=== PATIENT | male | born 1995 | race Caucasian/White ===

== ENCOUNTER 2019-07-13 19:49 | Emergency (ER) | payer SELFPAY ==
[2019-07-13 19:50] VITALS: BP 117/76; PULSE 82; PULSE 96; RESP 16; RESP 24; TEMP 36.6; O2SAT 100; BMI 26.7
--- NOTE | 2019-07-13 20:06 | ED.VISSUMM ---
- ER Visit Summary Date of Service: 07/13/19 Chief Complaint: Dental pain History of Present Illness: The patient is a 23 M who presents with right lower dental pain that began approximately 30 minutes prior to arrival. Patient states he thinks he broke a piece of his tooth off. Patient stated over the right lower molar area. Patient denies any fevers. Patient does admit to cold sensitivity. Patient describes his pain as sharp. Patient states nothing makes it better or worse. Patient states he does not have a dentist that he normally sees. Physical Examination: Vital signs are stable. Patient is afebrile. Patient is in no acute distress. Oral mucosa is pink and moist. Oropharynx is clear. Airway is patent. There is tenderness over the right lower third molar. There is a dental carry noted over this tooth. There is some gingival edema. There is no sublingual edema or evidence of Willie angina. Neck is supple. Trachea is midline. There is no JVD. Heart was regular rate and rhythm. Lungs are clear and equal bilaterally. Cranial nerves II through XII are intact. There are no focal motor or sensory deficits. Emergency Department Course and Treatment: Patient was given a dose of Naprosyn and penicillin here. Patient is given prescriptions for Naprosyn and Pen-Vee K. Patient was instructed to follow-up with a dentist in 5 to 7 days. Patient understood and was agreeable with the plan. All questions were answered. Disposition: Discharge home Impression: Infected dental caries This note was generated with [employer] dictation software. It may contain incorrect words, spelling, and punctuation that were not noted in review of the chart prior to signing ED Disposition - Plan for ED Patient: Disposition: Home or Assisted Living Diagnosis: Infected dental caries Instructions: Dental Pain, Dental Cavity Prescriptions: Naproxen [Naprosyn] 500 mg PO BID PRN #20 tab Prescription Printed Penicillin V Potassium 500 mg PO 4X/DAY #40 tab Prescription Printed Referrals: Nanci Beasley MD [STAFF PHYSICIAN] - 5-7 Days [facility] [STAFF PHYSICIAN] - 3-5 Days
[2019-07-13] MEDS: Penicillin Vk 250 MG Tablet 500 MG PO (20:19)
[2019-07-13] MEDS: Naproxen 250 MG Tablet 500 MG PO (20:19)
== END 2019-07-13 20:21 | disposition home or self-care (01) ==
PROVIDERS: Emergency Provider Emergency Medicine
DX: K04.7 Periapical abscess without sinus (principal); K02.9 Dental caries, unspecified; F17.200 Nicotine dependence, unspecified, uncomplicated
CPT/HCPCS: 99282

== ENCOUNTER 2019-08-18 12:00 | Emergency (ER) | payer SELFPAY ==
[2019-08-18 12:02] VITALS: BP 129/87; PULSE 114; RESP 16; TEMP 36.7; O2SAT 98; BMI 25.1
[2019-08-18] MEDS: Diphth,Pertuss(Acell),Tet Vac 0.5 ML Vial IM (12:33)
--- NOTE | 2019-08-18 12:35 | ED.VIS.GEN ---
History of Present Illness Informant: Patient Onset: Today Context: Sudden Onset Timing: Continuous Quality: sharp Location: right thigh Current Severity: Mild Maximum Severity: Moderate Worsened by: movement Relieved by: rest Associated Symptoms: denies Narrative: 24-year-old male who denies any significant past medical history presents to the emergency department with a laceration to his right thigh. This occurred just prior to arrival. He was attempting to shave his legs. He lacerated his right thigh with a razor blade. He denies any other injuries. He denies any numbness tingling or weakness. He does not remember when his last tetanus immunization was. He is not on blood thinners. Prior similar symptoms: No Recent Illness/Hospitalization: No <Sanjeev Michelle - Last Filed: 08/18/19 12:37> <Ivan Mcqueen - Last Filed: 08/18/19 12:45> Chief Complaint: Laceration Past Medical History Prior records reviewed: Yes Past Medical History: None Surgical History: no surgical history Lives: With Family Smoking Status: Current every day smoker Alcohol: Occasional Drugs: None <Sanjeev Michelle - Last Filed: 08/18/19 12:37> <Ivan Mcqueen - Last Filed: 08/18/19 12:45> - Allergies and Home Meds Allergies/Adverse Reactions: Allergies No Known Allergies Allergy (Verified 08/18/19 12:01) Primary Care Physician: Chris Delong MD [STAFF PHYSICIAN] - 10-14 Days suture removal Review of Systems All systems negative except as indicated General: Denies: Chills, Fever, Malaise, Subjective, Sweats, Weight loss, - Eyes: Denies: Visual changes - left, Visual changes - right, Visual changes - bilaterally, Blurred vision - left, Blurred vision - right, Blurred Vision - bilaterally, Diplopia, -, - ENT: Denies: Bilateral ear pain, Left ear pain, Right ear pain, Rhinorrhea, Sore throat, -, - Cardiovascular: Denies: Chest pain, Palpitations, Heart racing, -, - Respiratory: Denies: Dyspnea, Cough, Sputum, Dyspnea on exertion, Orthopnea, Paroxysmal nocturnal dyspnea, -, - Gastrointestinal: Denies: Abdominal pain, Nausea, Vomiting, Diarrhea, Constipation, Melena, Hematochezia, -, - Genitourinary: Denies: Dysuria, Hematuria, Frequency, -, - Musculoskeletal: Denies: Myalgias, Arthralgias, Neck pain, Back pain, Swelling, Extremity Pain, -, - Skin: Reports: Wounds, -. Denies: Rash, Abscess, Abrasions Neurological: Denies: Headache, Weakness, Parasthesia, Numbness, -, - Psych: Denies: Depression, Anxiety, Suicidal thoughts, Suicidal ideations, -, - Endocrine: Denies: Polyuria, Polydipsia, Heat intolerance, Cold intolerance, -, - <Sanjeev Michelle - Last Filed: 08/18/19 12:37> Physical Exam Vital Signs/Narrative: Vital Signs Temp Pulse Resp BP Pulse Ox 08/18/19 12:02 98.0 F 114 H 16 129/87 H 98 Inital Vital Signs reviewed: Yes General: Well nourished, Well developed, No Acute Distress Head: Normocephalic, Atraumatic Eyes: Perrl, EOMI ENT: Moist mucous membranes Cardiovascular: Regular rate, Regular rhythm, No murmurs Respiratory: No distress, CTA bilaterally, Chest nontender Abdomen: Soft, Nontender, Nondistended, Normal bowel sounds, No masses Back: Nontender, Normal Inspection Extremities: Nontender, No edema Skin: Normal color, No rash, Trauma - Patient has a 3.5 cm laceration to his right medial mid thigh. It is linear. It is superficial. There is no surrounding infection. There is no active bleeding. Compartments are soft. He is neurovascularly intact distally. Neurological: Alert, Oriented x3 Psychological: Normal affect, Normal Mood <Sanjeev Michelle - Last Filed: 08/18/19 12:37> Vital Signs/Narrative: Vital Signs Temp Pulse Resp BP Pulse Ox 08/18/19 12:02 98.0 F 114 H 16 129/87 H 98 <Ivan Mcqueen - Last Filed: 08/18/19 12:45> Diagnostic/Tx/Re-eval - Medical Decision Making Patient's tetanus immunization was updated. Under sterile conditions with Betadine prep lidocaine was used locally for anesthesia approximately 4 cc. The wound was irrigated with pressure wash syringe approximately 60 cc of sterile saline was used for this. It was then cleansed again with Betadine. A total of 5 simple sutures were placed Ethilon #4?0. Tolerated well. Bacitracin and dressing were applied by nursing staff. Discussed with patient proper wound care. I advised him he will need removal of these in 10 to 14 days. Return precautions to the emergency department were reviewed for signs of infection. <Sanjeev Michelle - Last Filed: 08/18/19 12:37> - Medical Decision Making Patient was seen with me. I did a [id number] examination with the patient. Patient presents with a laceration to his right side. Patient states he cut it with a razor blade. Patient denies any paresthesias or weakness. Patient states the bleeding has been persistent. Patient is unsure of his last tetanus. Vital signs are stable. Patient is afebrile. Patient is in no acute distress. Skin is warm dry. There is a 2.5 cm full-thickness linear laceration over the medial aspect of the right thigh. There is some mild bleeding. There are no foreign bodies. There is moderate gapping of the wound margins. Sensation was intact light touch bilaterally in the lower extremities. Strength is 5/5 bilaterally in the lower extremities. The wound was cleaned and irrigated with copious amounts of normal saline. The wound was closed under my supervision. Bacitracin dressing was applied. Patient tolerated procedure well. Patient was instructed to follow-up with his primary care physician in 7 to 10 days for wound check and suture removal. Patient was instructed that he may return to the emergency department for suture removal if he does not have a primary care physician. Patient understood and was agreeable with the plan. All questions were answered. <Ivan Mcqueen - Last Filed: 08/18/19 12:45> ED Disposition <Sanjeev Michelle - Last Filed: 08/18/19 12:37> <Ivan Mcqueen - Last Filed: 08/18/19 12:45> - Plan for ED Patient: Disposition: Home or Assisted Living Diagnosis: Laceration of right thigh without complication Instructions: ED Laceration Ext Sutr Stap Tape Referrals: Chris Delong MD [STAFF PHYSICIAN] - 10-14 Days suture removal
== END 2019-08-18 12:45 | disposition home or self-care (01) ==
LOC: ED 12:42
PROVIDERS: Emergency Provider Physician Assistant Medical
DX: S71.111A Laceration without foreign body, right thigh, initial encounter (principal); W26.8XXA Contact with other sharp object(s), not elsewhere classified, initial encounter; Y93.9 Activity, unspecified; Y92.9 Unspecified place or not applicable; F17.200 Nicotine dependence, unspecified, uncomplicated
CPT/HCPCS: 12002; 90715; 99283

== ENCOUNTER 2023-07-05 11:35 | Emergency (ER) | payer SELFPAY ==
[2023-07-05 11:36] VITALS: BP 114/60; PULSE 87; RESP 14; TEMP 36.2; O2SAT 100; BMI 24.7
--- OUTSIDE RECORDS SUMMARY | 2023-07-05 13:13 | XMS RPT_ITS | CCD ---
Author Name Unknown Address [address] [place] [address] Organization [facility] Care Team Providers Care Electronic Maintenance Supervisor Name Role Phone Jorge Blunt Unavailable Unavailable Jorge lBunt Unavailable Unavailable No Doctor Assigned, Nodr Unavailable Unavail able Unavailable Primary Care Provider Unavailabl e Unavailable Primary Care Provider Unavailabl e TOMAZIC, ILENE ADONIS Referring Unavail able TOMAZIC, ILENE Referring Unavailable TOMAZIC, ILENE Attending Unavailable JAE DUMONT Referring Unavailable JAE DUMONT Attending Unavailable AMARILIS PATEL Attending Unavailable TOMAZIC, ILENE Referring Unavailable MARY CABRAL Attending Unavailable TOMAZIC, ILENE Attending Unavailable Medications Current Medications Medication Drug Class(es) Dates Sig (Normalized) Sig (Original) methylPREDNISolone (1 source) Corticosteroid Start: 03-29-2023 End: 04-03-2023 methylPREDNISolone (MEDROL, ILYA,) 4 mg Dose-Pack As instructed per package 21 tablet 0 03/29/2023 04/03/2023 Active Completed/Discontinued Medications Medication Drug Class(es) Dates Sig (Normalized) Sig (Original) bacitracin zinc 0.5 unt/mg topical ointment (1 source) Start: 01-24-2021 End: 01-24-2021 bacitracin ointment EPINEPHrine 0.01 mg/ml / lidocaine hydrochloride 10 mg/ml injectable solution (2 sources) Antiarrhythmic, alpha-Adrenergic Agonist, beta-Adrenergic Agonist, Catecholamine, Amide Local Anesthetic Start: 01-24-2021 End: 01-24-2021 lidocaine-EPINEPH rine 1 %-[id number] injection Problems Problem Classification Problem Date Documented Da te Episodic/Chronic Open wounds of extremities (1 source) Laceration of skin of hand; Translations: [Laceration without foreign body of right hand, initial encounter] Episodic Other non-traumatic joint disorders (2 sources) Hip pain; Translations: [Pain in left hip] 03-29-2023 Episodic Other non-traumatic joint disorders (1 source) Greater trochanteric pain syndrome of left lower limb; Translations: [Pain in left hip] 04-24-2023 Episodic Other non-traumatic joint disorders (2 sources) Pain in left hip; Translations: [Pain of left hip] Onset: 04-17-2023 Episodic Results Test Name Value Interpretation Reference Range Facil ity Vital Signs Date Time Vital Sign Value Performing Clinician Facility 03-29-2023 07:50-0500 Body height 175.3 cm Jae Dumont PA-C Work Phone: [facility] 03-29-2023 07:50-0500 Body temperature 97.2 [degF] Jae Dumont PA-C Work Phone: [facility] 03-29-2023 07:50-0500 Body weight 78.9 kg Jae Dumont PA-C Work Phone: [facility] 03-29-2023 07:50-0500 Diastolic blood pressure 76 mm[Hg] Jae Dumont PA-C Work Phone: [facility] 03-29-2023 07:50-0500 Heart rate 70 /min Jae Dumont PA-C Work Phone: [facility] 03-29-2023 07:50-0500 SaO2% (BldA) [Mass fraction] 100 % Jae Dumont PA-C Work Phone: [facility] 03-29-2023 07:50-0500 Systolic blood pressure 111 mm[Hg] Jae Dumont PA-C Work Phone: [facility] 01-24-2021 22:15-0400 Body height 175.3 cm Silvio Hdz MD Work Phone: [facility] Work Phone: 01-24-2021 22:15-0400 Body mass index (BMI) [Ratio] 27.32 kg/m2 Silvio Hdz MD Work Phone: [facility] Work Phone: 01-24-2021 22:15-0400 Body temperature 98.71 [degF] Silvio Hdz MD Work Phone: [facility] Work Phone: 01-24-2021 22:15-0400 Body weight 83.92 kg Silvio Hdz MD Work Phone: [facility] Work Phone: 01-24-2021 22:15-0400 Diastolic blood pressure 90 mm[Hg] Silvio Hdz MD Work Phone: [facility] Work Phone: 01-24-2021 22:15-0400 Heart rate 107 /min Silvio Hdz MD Work Phone: [facility] Work Phone: 01-24-2021 22:15-0400 Respiratory rate 18 /min Silvio Hdz MD Work Phone: [facility] Work Phone: 01-24-2021 22:15-0400 Systolic blood pressure 147 mm[Hg] Silvio Hdz MD Work Phone: [facility] Work Phone: Encounters Encounter Date Encounter Type Care Provider Facility Start: 06-18-2023 Emergency department patient visit Facility:[facility] Start: 05-19-2023 End: 05-19-2023 ambulatory AMARILIS MATILDE Facility:[facility] Start: 05-16-2023 ambulatory ILENE VENCES Facility:[facility] Start: 04-28-2023 End: 04-28-2023 ambulatory ILENE VENCES Facility:[facility] Start: 04-17-2023 End: 04-17-2023 ambulatory ILENE VENCES Facility:[facility] Start: 04-17-2023 End: 04-17-2023 Office consultation new/estab patient 60 min Ilene Vences MD Work Phone: Orthopaedics Procedures Date Procedure Procedure Detail Performing Clinician Start: 01-24-2021 End: 01-24-2021 LACERATION REPAIR Silvio Hdz MD Work Phone: Start: 01-24-2021 Radex hand minimum 3 views Silvio Hdz MD Work Phone: Plan of Treatment Date Care Activity Detail Author Start: 08-17-2029 Urine microalbumin profile DTaP,Tdap,Td Vaccine (7 - Td or Tdap) [facility] Start: 12-30-2022 Influenza vaccination Influenza Vaccine (#1) [facility] Start: 05-01-2022 Depression Assessment Depression Assessment [facility] Start: 12-30-2020 Influenza vaccination Flu vaccine (#1) [facility] Work Phone: Start: 2012 Hepatitis C Screening Hepatitis C Screening [facility] Start: 2012 Hepatitis C screening Hepatitis C Screening [facility] Start: 2012 HIV Screening HIV Screening [facility] Start: 2012 HIV screening HIV Screening [facility] Start: 2006 COVID-19 Vaccine (1) COVID-19 Vaccine (1) [facility] Work Phone: Start: [address] [facility] Start: 01-14-1995 Covid-19 Vaccine (#1) Covid-19 Vaccine (#1) [facility] End: 05-16-2024 MRI HIP WO IVCON LEFT MRI HIP WO IVCON LEFT Radiology BRAEDEN Pain of left hip 1 Occurrences starting 04/17/2023 until 05/16/2024 [facility] Work Phone: Payers Date Payer Category Payer Medicaid [id number] 2017 Unknown Social History Date Type Detail Facility Tobacco smoking stat us [facility] Unknown if ever smoked [facility] Work Phone: Start: 1994 Sex Assigned At Not on file S [facility] Work Phone: Exposure to SARS-CoV -2 (event) Not sure [facility] Start: 03-29-2023 [facility] History of tobacco use Cigarette Smoker C [facility] Start: 03-06-2023 End: 03-29-2023 Cigarettes smoked current (pack per day) - Reported 0.5 [facility] Start: 03-29-2023 Tobacco use and exposure Smokeless tobacco non-user [facility] Start: 03-29-2023 Alcohol intake Current drinke r of alcohol (finding) [facility] Start: 03-06-2023 End: 03-29-2023 Tobacco use panel [facility] National Score (1-10 0), lower number is lower risk 69 [facility] Start: 03-05-2023 Alcohol Comment pint of fireball a d ay [facility] Clinical Notes 03-29-2023 to 05-19-2023 Ilene Vences MD - 04/17/2023 3:06 PM Jae Jameson PA-C - 03/29/2023 8:02 AM EST Note Date & Type Note Facility 05-19-2023 Note HNO ID: [id number] Author: AMARILIS PATEL, PT Service: ? Author Type: Physical Therapist Type: Progress Notes Filed: 05/19/2023 14:40 Note Text: Episode Visit Count: 2 Therapist That Will Accept/Oversee The Plan Of Care: Mary Cabral Start of Care Date: 04/28/23 Onset Date: 05/01/22 Patient Identified by Name and Date of : Yes REHABILITATION AND SPORTS THERAPY PHYSICAL THERAPY TREATMENT NOTE ASSESSMENT: Adrian Estrella tolerated the session with expected muscle soreness. He demonstrated expected tolerance to the therapeutic exercises. The patient will continue to benefit from ongoing skilled physical therapy to progress toward set goals. PLAN FOR NEXT VISIT: Could continue manual therapy to improve tolerated ROM of the L hip and decrease pain. Continue to strengthen LLE as tolerated ensuring pt is feeling challenged by the exercises. SUBJECTIVE: Has not had time to do the exercises. Has 4 kids and works. Did the exercises onlt a few times. Dad has similar issues and he had to have surgery. Has anxiety about the situations and just wants the pain to stop. Pain: Pain Pain Level: 6 Pain Location: Hip - Left Description: Dull, Aching Post Treatment Pain Post Treatment Pain Level: No Change Post Treatment Pain Location: Hip - Left OBJECTIVE MEASURES WITH LEVEL OF FUNCTION: FADDIR positive RLE TREATMENT: Therapeutic Exercise: 1: Hooklying bridge x 10 2: Hooklying bridge into abduction against purple TB 3 x 12 reps (6/10 on RPE scale) Skilled Intervention: Patient was educated in proper exercise technique and purpose for exercises. Provided written instruction for home exercise program to facilitate proper performance and compliance. Manual Therapy: 1: Sustained lateral traction of L FA joint using belt in hooklying x 3 min (Decreases pain) 2: Explained how to perform FA joint traction at home using long belt or bed sheet so that his spouse can help him relieve some hip pain. 3: Squats with lateral traction at hip joint using belt 2 x 10 (Decreases hip pain and improved ROM) Skilled Intervention: Manual skills to improve joint mobility, ROM, and decrease pain. Utilized anatomy knowledge of the therapist, and assessment of patient's response to intervention. Self-Long Term Management: 1: Thorough education performed on hip joint mechanics and causes for hip impingement. Explained how therapeutic exercises and manual therapy can provide relief to pt's symptoms and improve joint mechanics to prevent pain and improve function. Expressed the importance of avoiding self manipulation at the hip joint. Answered pt's questions to the best of this PT's ability. Skilled Intervention: Skilled judgment in the selection of proper modification for activity of daily living/home management based on clinical presentation, deficits, and needs. Billing Therapeutic Exercise Treatment Minutes: 9 Manual TherapyTreatment Minutes: 25 Self-Care/Home Management Treatment Minutes: 20 Skilled Treatment Time Minutes (timed and untimed codes): 54 Total Session Time (minutes): 54 Session Start Time : 1334 Session Stop Time : 1428 Amarilis Patel PT [facility] 05-19-2023 Note HNO ID: [id number] Author: ILENE VENCES MD Service: ? Author Type: Physician Type: Progress Notes Filed: 05/19/2023 11:14 Note Text: MUSCULOSKELETAL DISTANCE HEALTH TELEPHONE VISIT DOCUMENTATION NOTE This visit was performed via telephone audio only, and the patient provided consent to be evaluated and managed using this telephone encounter. The patient was identified by name and date of . 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 No current outpatient medications on file prior to visit. No current facility-administered medications on file prior to visit. Final results and radiologist's interpretation, available in the [facility] health record. Results were reviewed with the patient/family members on the phone today. 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 Clinical Data Coordinator: ARUN Transcribe Date/Time: May 16 2023 8:51A Dictated by : BETH RODGERS MD This examination was interpreted and the report reviewed and electronically signed by: BETH RODGERS MD on May 16 2023 9:02AM EST Results-Findings * * *Final Report* * * DATE OF EXAM: May 16 2023 8:40AM [facility] 0206 - MRI HIP WO IVCON LT / PROCEDURE REASON: Pain of left hip * * * * Physician Interpretation * * * * EXAMINATION: MRI HIP WO IVCON LT HISTORY: Pain of left hip TECHNIQUE: Routine multiplanar MRI of the hip without contrast COMPARISON: None. RESULT: Hip joints: Left hip: There is mild osseous prominence at the femoral head neck junction which may be seen with cam-type femoral acetabular impingement morphology. There is also a small subcortical cyst at the anterior femoral head neck junction. Small area of fraying/partial tearing is noted in the anterior superior labrum. An area of chondral fissuring in the superior chondral labral junction with small reactive subchondral cyst reflecting the presence of at least some full-thickness components. There is no joint effusion. Large [id number] images of the right hip are unremarkable. Evaluation of articular cartilage and labrum is limited. Bone Marrow: No fracture or suspicious marrow replacing lesions. Sacroiliac joints: Within normal limits. Pubic symphysis: Within normal limits. Tendons: The iliopsoas, hamstring, gluteal, and rectus femoris tendons are intact. No significant peritrochanteric bursitis. Muscles: Within normal limits. Other: No other significant findings. Localizer images: No significant additional findings. ASSESSMENT: (M25.859) Femoral acetabular impingement (primary encounter diagnosis) PLAN: - Discussed extra-articular versus intra-articular causes of hip pain, including mechanical symptoms. Discussed impingement including pictographic explanation. Discussed potential mechanisms of decreased internal rotation, combined with an acute injury, causing labral pathology. - Referral to physical therapy for core and glute strength, gentle hip ROM, stability and balance. - Recommend OTC medications for pain control. Discussed the risk and benefits of general NSAIDs, as well as side effect profile. We will continue to monitor the need for further usage, and/or need for discontinuation. Will continue with the use of NSAIDs. If use greater than 3-6 months, will recommend follow up for appropriate laboratory monitoring if indicated. If patient has had testing recently with PCP, we will review these with patient when appropriate. Patient has previously been taking NSAIDs, and frequently cycles through medication. A thorough discussion today helped educate him/her about the significant FDA updated warnings about NSAIDs, the risk of combining or overdosing NSAIDs, and the need for monitoring laboratory data if on fpc usage. I suggested thatpatient have this same conversation with their primary physician. - Risks, benefits, and indications for diagnostic/therapeutic corticosteroid injections discussed. If no improvement in symptoms, we may consider Intraarticular Corticosteroid Injection at the next visit. - If this regimen does not provide appropriate relief of symptoms, we will consider surgical referral. Detailed instructions were reviewed with the patient and all questions were answered in detail. We discussed reasons for emergent need to refer to seek care (more content not included)... [facility] 04-28-2023 Note HNO ID: [id number] Author: Mary Cabral, PT, DPT Service: ? Author Type: Physical Therapist Type: Progress Notes Filed: 04/28/2023 1:49 PM Note Text: Episode Visit Count: 1 Therapist That Will Accept/Oversee The Plan Of Care: Mary Cabral Start of Care Date: 04/28/23 Onset Date: 05/01/22 Patient Identified by Name and Date of : Yes REHABILITATION AND SPORTS THERAPY PHYSICAL THERAPY EVALUATION PLAN OF CARE: Assessment: Adrian Estrella presents with diagnosis of left hip pain that interferes with lifting, bending, working, squatting, sitting, rising from a chair, stair negotiation, walking, standing, driving, physical activities . He presents with impairments in ADL's, gait, independence in exercise, overall function, range of motion, strength, and symptom management. Patient did not complete the PROMIS? (Patient Reported Outcome Measures Information System). Prognosis for therapy is Fair due to: chronic nature of impairments, limited tolerance to activity, occupational demands . He will benefit from skilled therapy services to meet the goals established for this plan of care as noted below. Goals for Episode of Care: created on 04/28/23 through 06/09/23 [place] in home exercise program. Patient will decrease pain rating by 2 points to meet minimal clinical important difference for numeric pain rating scale. Patient will demonstrate increase in LLE strength to 5/5 during manual muscle testing in order to improve function for moderate to heavy functional tasks. Patient will lift 20# from floor to perform work related activities with minimal hip pain. Reciprocal stair negotiation and ambulation with minimal pain and normal pattern. Patient Goals: Reduce pain Planned Interventions, Frequency, and Duration: Current Frequency: 1x/week Duration: 6 weeks Total Number of Visits Planned: 6 Planned Treatment Interventions: Therapeutic exercise (76884), Neuromuscular re-education (72888), Manual therapy (24982), Therapeutic activities (26911) PLAN FOR NEXT VISIT: Progress LE strengthening as tolerated, review HEP, assess symptoms with PROM of left hip as able Patient demonstrates good understanding of plan of care and treatment. The above goals and plan of care were discussed and agreed upon by patient/family. SUBJECTIVE: Patient presenting to PT for evaluation of left hip pain onset ~10 years ago. Onset was insidious. Increased pain with physical activity. He feels he popped it out of place 10 years ago, and now has to pop it 6+ times per day to relieve pain. He pops it by rotating his hip outward. When pain is really bad he feels he cannot walk or put pressure on it. X-ray negative, no MRI. Patient Goals: Reduce pain Functional Limitations: lifting, bending, working, squatting, sitting, rising from a chair, stair negotiation, walking, standing, driving, physical activities Prior Level of Function: Independent without limitations Relevant History Employment: [employer]: See Comment [employer] Occupation: Construction work Intake Information: Prescription present Previous Treatment: NSAIDs Falls Interview: No positive findings with falls interview Pain: Pain Pain Level: 6 Pain Location: Hip - Left Description: Dull, Aching Frequency: Continuous Post Treatment Pain Post Treatment Pain Level: No Change Post Treatment Pain Location: Hip - Left PROMIS Scales T-scores: mean of general population = 50. 5 points is clinically meaningfully difference Percentiles provide an indication of how the patient's score ranks in relation to the general population. Higher percentile rankings indicate better function/quality of life. 50th percentile is the average of the general population and indicates half of respondents had a worse score. OBJECTIVE MEASURES WITH LEVEL OF FUNCTION: Posture / Alignment Posture: Forward head, Rounded shoulders Hip Observations L Hip Palpation Tenderness: Gluteals, TFL (Tensor fasciae latae) Sensation - Lower Extremity LE Light Touch Sensation: Grossly Intact LE AROM R Hip Internal Rotation: 42 Degrees R Hip External Rotation: 49 Degrees L Hip Internal Rotation: 24 Degrees (Painful) L Hip External Rotation: 47 Degrees LE PROM R Hip Flexion: 138 Degrees L Hip Flexion: 144 Degrees (painful) LE Flexibility Flexibility: Hamstring Flexibility R Hamstring Flexibility: impaired L Hamstring Flexibility: impaired LE Strength R Hip External Rotation: 4/5 L Hip Extension: 3+/5 (painful) L Hip Flexion (L2): 4/5 (painful) L Hip ABduction: 5/5 (painful) L Hip Internal Rotation: 4+/5 (The most painful motion) L Hip External Rotation: 4+/5 Special Tests - Hip and Spine Hip and Spine Special Tests: SLR Test, ALEJANDRO Test, FADDIR Test, Scour Test SLR Test: Right Negative, Left Negative ALEJANDRO Test: Right Negative, Left Negative (Left negative though painful) FADDIR Test: Left Positive (more content not included)... [facility] 04-17-2023 Note HNO ID: [id number] Author: Ilene Vences MD Service: ? Author Type: Physician Type: Progress Notes Filed: 04/24/2023 9:57 PM Note Text: Adrian Estrella is here today at request of Jae Dumont specifically for consultation of my opinion in regards to the chief complaint listed below. Correspondence will be shared today via the [facility] electronic health record or through regular mail, where applicable. CHIEF COMPLAINT: Adrian Estrella is a 27 year old male who presents today for new evaluation of Left hip pain. HISTORY OF PRESENT ILLNESS: >10 years hip pain Pain radiates to the groin Feels like it gives out Seen by spine, thought more hip than spine, prescribed Medrol dose pack, pt did not start this Seen in ED 03/05/23: after a fall, sent to spine Gets numbness and tingling into legs when sitting >45min; has been an issue since the hip pain started Radicular symptoms: Yes Activity Level: normal for patient. PAIN EVALUATION 04/17/2023 1517 Pain Level: 8 Pain Location: Hip-Left Description: Sharp popping, radiating to the groin, pressure Duration Units: Years Frequency: Continuous Intervention/Comfort measure: Reposition;Relaxation;Medication Comments: Pt is here for left hip pain x 10 years. PT reports he noticed years ago he was getting out of the bed and his hip popped out of place. His pain is 8/10 and is constant. At times the pain increases to a 40 . Pt describes pain as striking, pressure, sharp, radating into his groin. PT reports I'm popping 6-8 ibuprofen at a time . ALLERGIES: ALLERGIES No Known Allergies PAST MEDICAL HISTORY: No past medical history on file. SOCIAL HISTORY: Tobacco Use: .5 packs/day Types: Cigarettes PHYSICAL EXAMINATION: Vitals: There were no vitals taken for this visit. Body Habitus:well nourished and no acute distress Orientation: Normal: Oriented to person, place and time Psych: normal and appropriate Sensation: sensation to light touch is grossly normal bilaterally Skin: Color, texture, turgor normal. No rashes or lesions Swelling: no swelling noted Stance: Spine: normal curvature GAIT: Normal, the patient did not have trouble getting onto the exam table. SPINE AND HIP EXAM: Muscle Strength: Hip flexion (L2/L3):5/5 Hip extension (L4/L5): 5/5 Hip adduction (L1/L2): 5/5 Hip abduction (L5/S1/S2): 5/5 ROM: normal range of motion of the bilateral hips Neurologic: Sensation: sensation to light touch is grossly normal bilaterally Palpation: Tenderness to palpation noted of the left greater trochanter in the area of the gluteus medius tendon insertion. Special Tests: Straight Leg Raise (SLR): negative bilaterally Crossed Straight Leg Raise (SLR): negative bilaterally Braggard's Sign: negative bilaterally ALEJANDRO Test: reproduces the presenting complaints FADIR Test: testing reproduces the presenting complaints Scour Test: negative bilaterally Log Roll: negative bilaterally [place] Test: negative bilaterally Deep Flexion: positive testing IMAGING: Final results and radiologist's interpretation, available in the [facility] health record. Images were reviewed with the patient/family members in the office today. My personal interpretation of the performed imaging: APWB of the pelvis, AP and lateral of the left hip were obtained today and read by me. The hip joints are concentric without joint space narrowing. There is no sign of cross over. There is sign of cam lesion. There is no pincer lesion. The pubic symphysis normal. The sacroiliac joints are normal. The included lumbar spine is normal. CLINICAL IMPRESSION / ASSESSMENT: (M25.552) Greater trochanteric pain syndrome of left lower extremity (primary encounter diagnosis) (M25.552) Pain of left hip RECOMMENDATION / PLAN: -Discussed with the patient the nature of greater trochanteric pain syndrome/ gluteus medius syndrome. I cannot r/o a labral tear given exam and imaging. Pt does note a h/o severe pain and pt was very sensitive on exam today. No clear clinical signs of infectious etiology. No obvious risk factors. -Discussed xray imaging results with patient. -Discussed options for activity modification. -Discussed factors of muscle strength, postural balance. -Discussed possible treatment modalities including PT, injection. -Questions answered. -Written patient information provided in the AVS. -MRI, CBC, CRP, sed rate ordered today given the severity of his pain. Verbal health education was given to patient. Patient verbalizes understanding and agrees with the treatment plan as detailed above. Ilene Vences MD [facility] 04-17-2023 History of Present illness Narrative Images from the original note were not included. Adrian Estrella is here today at request of Jae Dumont specifically for consultation of my opinion in regards to the chief complaint listed below. Correspondence will be shared today via the [facility] electronic health record or through regular mail, where applicable. CHIEF COMPLAINT: Adrian Estrella is a 27 year old male who presents today for new evaluation of Left hip pain. HISTORY OF PRESENT ILLNESS: >10 years hip pain Pain radiates to the groin Feels like it gives out Seen by spine, thought more hip than spine, prescribed Medrol dose pack, pt did not start this Seen in ED 03/05/23: after a fall, sent to spine Gets numbness and tingling into legs when sitting >45min; has been an issue since the hip pain started Radicular symptoms: Yes Activity Level: normal for patient. PAIN EVALUATION 04/17/2023 1517 Pain Level: 8 Pain Location: Hip-Left Description: Sharp popping, radiating to the groin, pressure Duration Units: Years Frequency: Continuous Intervention/Comfort measure: Reposition;Relaxation;Medication Comments: Pt is here for left hip pain x 10 years. PT reports he noticed years ago he was getting out of the bed and his hip popped out of place. His pain is 8/10 and is constant. At times the pain increases to a 40 . Pt describes pain as striking, pressure, sharp, radating into his groin. PT reports I'm popping 6-8 ibuprofen at a time . ALLERGIES: ALLERGIES No Known Allergies PAST MEDICAL HISTORY: No past medical history on file. SOCIAL HISTORY: Tobacco Use: .5 packs/day Types: Cigarettes PHYSICAL EXAMINATION: Vitals: There were no vitals taken for this visit. Body Habitus:well nourished and no acute distress Orientation: Normal: Oriented to person, place and time Psych: normal and appropriate Sensation: sensation to light touch is grossly normal bilaterally Skin: Color, texture, turgor normal. No rashes or lesions Swelling: no swelling noted Stance: Spine: normal curvature GAIT: Normal, the patient did not have trouble getting onto the exam table. SPINE AND HIP EXAM: Muscle Strength: Hip flexion (L2/L3):5/5 Hip extension (L4/L5): 5/5 Hip adduction (L1/L2): 5/5 Hip abduction (L5/S1/S2): 5/5 ROM: normal range of motion of the bilateral hips Neurologic: Sensation: sensation to light touch is grossly normal bilaterally Palpation: Tenderness to palpation noted of the left greater trochanter in the area of the gluteus medius tendon insertion. Special Tests: Straight Leg Raise (SLR): negative bilaterally Crossed Straight Leg Raise (SLR): negative bilaterally Braggard's Sign: negative bilaterally ALEJANDRO Test: reproduces the presenting complaints FADIR Test: testing reproduces the presenting complaints Scour Test: negative bilaterally Log Roll: negative bilaterally [place] Test: negative bilaterally Deep Flexion: positive testing IMAGING: Final results and radiologist's interpretation, available in the [facility] health record. Images were reviewed with the patient/family members in the office today. My personal interpretation of the performed imaging: APWB of the pelvis, AP and lateral of the left hip were obtained today and read by me. The hip joints are concentric without joint space narrowing. There is no sign of cross over. There is sign of cam lesion. There is no pincer lesion. The pubic symphysis normal. The sacroiliac joints are normal. The included lumbar spine is normal. CLINICAL IMPRESSION / ASSESSMENT: (M25.552) Greater trochanteric pain syndrome of left lower extremity (primary encounter diagnosis) (M25.552) Pain of left hip RECOMMENDATION / PLAN: -Discussed with the patient the nature of greater trochanteric pain syndrome/ gluteus medius syndrome. I cannot r/o a labral tear given exam and imaging. Pt does note a h/o severe pain and pt was very sensitive on exam today. No clear clinical signs of infectious etiology. No obvious risk factors. -Discussed xray imaging results with patient. -Discussed options for activity modification. -Discussed factors of muscle strength, postural balance. -Discussed possible treatment modalities including PT, injection. -Questions answered. -Written patient information provided in the AVS. -MRI, CBC, CRP, sed rate ordered today given the severity of his pain. Verbal health education was given to patient. Patient verbalizes understanding and agrees with the treatment plan as detailed above. Ilene Vences MD documented in this encounter [facility] 03-29-2023 Note HNO ID: [id number] Author: Jae Dumont PA-C Service: ? Author Type: Physician Master Cosmetologist Type: Progress Notes Filed: 03/29/2023 8:22 AM Note Text: Spine Care Path Initial Exam SUBJECTIVE HISTORY OF PRESENT ILLNESS: Adrian Estrella is a 27 year old male who presents with a chief complaint of leg pain and is seen in consultation requested by Dr. Beltran for an opinion regarding hip pain. My final recommendations will be communicated back to the requesting physician by way of shared medical record or letter via [place] mail. Patient is here for acute pain of the L hip, states he has had problems with his hip in the past with it going out . Pain will last quite a while and then eventually improve. Feels pain in the L lateral hip with pain going into the groin. Has a hard time lifting the L leg due to the pain in the groin and lateral leg. Denies any pain radiating down the leg. No numbness, tingling, weakness. No pain in the lumbar spine. Was recently seen in the ED where he was referred to Ortho, he was then scheduled with spine medicine. Cannot go up steps with the L leg due to the pain. Other Issues Addressed at the Visit Today: None. Precipitating Event: None PAIN EVALUATION 03/29/2023 0750 Pain Level: 4 Pain Location: Hip-Left Description: Aching Duration Units: Years Frequency: Intermittent YELLOW AND BLUE FLAGS No-Neg Attitude; Back Pain is Disabling No-Avoiding Activity (for Fear of Pain) No-Depression or Anxiety Disorders No-Social Problems No-Substance Use Disorder No-Job Dissatisfaction No-Financial Disincentives Patient Entered Questionnaires PROMIS Score Percentiles Percentiles provide an indication of how the patient's score ranks in relation to the general population. Higher percentile rankings indicate better function/quality of life. 50th percentile is the average of the general population and indicates half of respondents had a worse score. Depression Screening: PHQ-9 Self-Harm (Item 9) response options: 0 Not at all 1 Several days 2 More than half the days 3 Nearly every day PHQ-9 Levels: 0-4 No - mild depression 5-9 Mild depression 10-14 Moderate depression 15-19 Moderately severe depression 20-27 Severe depression There is no problem list on file for this patient. No past medical history on file. No past surgical history on file. Social History Tobacco Use Smoking status: Every Day Packs/day: .5 Types: Cigarettes Smokeless tobacco: Never Substance Use Topics Alcohol use: Yes Comment: pint of fireball a day No family history on file. ALLERGIES No Known Allergies CURRENT MEDICATIONS: No prescriptions on file. REVIEW OF SYSTEMS: OBJECTIVE: PHYSICAL EXAM BP 111/76 Pulse 70 Temp 36.2 ?C (97.2 ?F) (Temporal) Ht 175.3 cm (5' 9 ) Wt 78.9 kg (173 lb 15.1 oz) SpO2 100% BMI 25.69 kg/m? GENERAL APPEARANCE: Well appearing, well-hydrated, well nourished and alert SKIN: Head, neck, trunk, and extremities dry, intact and without lesions HEART: Regular rate and rhythym, Murmur negative LUNGS: even and non-labored breathing, normal chest excursion LYMPHATICS: No palpable lymphadenopathy in the neck, axilla, or groin NEURO/PSYCH: oriented to time, place, and person, speech normal, mental status intact GAIT: antalgic gait POSTURE: Posture and spinal curves are normal PALPATION: no palpable masses, tenderness, or spasm, no palpable subluxation or step-off, no point tenderness over the spine MUSCULOSKELETAL: Extended Low Back AND Leg Exam Lumbar Range of Motion Flexion N/A Extension Normal RIGHT LEFT Lateral Bending Full Full Oblique Extension Within Normal Limits Within Normal Limits Leg Raise Straight Leg Raise Negative Negative Contralateral Straight Leg Raise Negative Negative DTRs Knee Normal Normal Ankle Normal Normal Medial Hamstring Normal Normal Babinski normal normal Strength of Lower Extremities Extensor Hallux Longus 5/5 5/5 Ankle Dorsiflexion 5/5 5/5 Ankle Plantarflexion 5/5 5/5 Knee Extension 5/5 5/5 Sydney's Exam: Deferred Hip Range of Motion RIGHT LEFT Flexion Normal Mildly Restricted Extension Normal Normal Abduction Normal Mildly Restricted Adduction Normal Mildly Restricted Internal Rotation Normal Mildly Restricted External Rotation Normal Mildly Restricted Hip Exam RIGHT LEFT ALEJANDRO Exam Normal Abnormal Trochanteric Bursa Tenderness Normal Normal Gaenslen's Maneuver Normal Normal Ivanna's Test (IT-Band Pathology) Normal Normal Increase groin pain with resisted L hip flexion NEUROSENSORY: Differentiation of sharp and light touch; Within Normal Limits Neuro Tests: Cranial Nerves: Normal mood and affect. CNII-XII grossly intact. Data Review: [facility] records independently reviewed Imaging and outside records independently reviewed Images independently reviewed with the patient RESULT: No acute fracture or dislocat (more content not included)... [facility] 03-29-2023 History of Present illness Narrative Spine Care Path Initial Exam SUBJECTIVE HISTORY OF PRESENT ILLNESS: Adrian Estrella is a 27 year old male who presents with a chief complaint of leg pain and is seen in consultation requested by Dr. Beltran for an opinion regarding hip pain. My final recommendations will be communicated back to the requesting physician by way of shared medical record or letter via [place] mail. Patient is here for acute pain of the L hip, states he has had problems with his hip in the past with it going out . Pain will last quite a while and then eventually improve. Feels pain in the L lateral hip with pain going into the groin. Has a hard time lifting the L leg due to the pain in the groin and lateral leg. Denies any pain radiating down the leg. No numbness, tingling, weakness. No pain in the lumbar spine. Was recently seen in the ED where he was referred to Ortho, he was then scheduled with spine medicine. Cannot go up steps with the L leg due to the pain. Other Issues Addressed at the Visit Today: None. Precipitating Event: None PAIN EVALUATION 03/29/2023 0750 Pain Level: 4 Pain Location: Hip-Left Description: Aching Duration Units: Years Frequency: Intermittent YELLOW & BLUE FLAGS No-Neg Attitude; Back Pain is Disabling No-Avoiding Activity (for Fear of Pain) No-Depression or Anxiety Disorders No-Social Problems No-Substance Use Disorder No-Job Dissatisfaction No-Financial Disincentives Patient Entered Questionnaires PROMIS Score Percentiles Percentiles provide an indication of how the patient's score ranks in relation to the general population. Higher percentile rankings indicate better function/quality of life. 50th percentile is the average of the general population and indicates half of respondents had a worse score. Depression Screening: PHQ-9 Self-Harm (Item 9) response options: 0 Not at all 1 Several days 2 More than half the days 3 Nearly every day PHQ-9 Levels: 0-4 No - mild depression 5-9 Mild depression 10-14 Moderate depression 15-19 Moderately severe depression 20-27 Severe depression There is no problem list on file for this patient. No past medical history on file. No past surgical history on file. Social History Tobacco Use Smoking status: Every Day Packs/day: .5 Types: Cigarettes Smokeless tobacco: Never Substance Use Topics Alcohol use: Yes Comment: pint of fireball a day No family history on file. ALLERGIES No Known Allergies CURRENT MEDICATIONS: No prescriptions on file. REVIEW OF SYSTEMS: OBJECTIVE: PHYSICAL EXAM BP 111/76 Pulse 70 Temp 36.2 C (97.2 F) (Temporal) Ht 175.3 cm (5' 9 ) Wt 78.9 kg (173 lb 15.1 oz) SpO2 100% BMI 25.69 kg/m GENERAL APPEARANCE: Well appearing, well-hydrated, well nourished and alert SKIN: Head, neck, trunk, and extremities dry, intact and without lesions HEART: Regular rate and rhythym, Murmur negative LUNGS: even and non-labored breathing, normal chest excursion LYMPHATICS: No palpable lymphadenopathy in the neck, axilla, or groin NEURO/PSYCH: oriented to time, place, and person, speech normal, mental status intact GAIT: antalgic gait POSTURE: Posture and spinal curves are normal PALPATION: no palpable masses, tenderness, or spasm, no palpable subluxation or step-off, no point tenderness over the spine MUSCULOSKELETAL: Extended Low Back & Leg Exam Lumbar Range of Motion Flexion N/A Extension Normal RIGHT LEFT Lateral Bending Full Full Oblique Extension Within Normal Limits Within Normal Limits Leg Raise Straight Leg Raise Negative Negative Contralateral Straight Leg Raise Negative Negative DTRs Knee Normal Normal Ankle Normal Normal Medial Hamstring Normal Normal Babinski normal normal Strength of Lower Extremities Extensor Hallux Longus 5/5 5/5 Ankle Dorsiflexion 5/5 5/5 Ankle Plantarflexion 5/5 5/5 Knee Extension 5/5 5/5 Sydney's Exam: Deferred Hip Range of Motion RIGHT LEFT Flexion Normal Mildly Restricted Extension Normal Normal Abduction Normal Mildly Restricted Adduction Normal Mildly Restricted Internal Rotation Normal Mildly Restricted External Rotation Normal Mildly Restricted Hip Exam RIGHT LEFT ALEJANDRO Exam Normal Abnormal Trochanteric Bursa Tenderness Normal Normal Gaenslen's Maneuver Normal Normal Ivanna's Test (IT-Band Pathology) Normal Normal Increase groin pain with resisted L hip flexion NEUROSENSORY: Differentiation of sharp and light touch; Within Normal Limits Neuro Tests: Cranial Nerves: Normal mood and affect. CNII-XII grossly intact. Data Review: [facility] records independently reviewed Imaging and outside records independently reviewed Images independently reviewed with the patient RESULT: No acute fracture or dislocation. Joint spaces are maintained. Normal alignment. ASSESSMENT/PLAN (M25.552) Pain of left hip (primary encounter diagnosis) Comment: Patient here with L hip pain, pain seems to be more from the hip itself than the spine. Will start steroids as well as consult to Ortho for further workup. Plan: CONSULT TO ORTHOPAEDICS Imaging Ordered: None SIGNATURE: Jae Dumont PA-C PATIENT NAME: Adrian Estrella DATE: March 29, 2023 TIME: 8:02 AM documented in this encounter [facility] documented in this encounter [facility] Work Phone: Evaluation note* Diagnosis Pain of left hip- Primary [facility] Diagnosis Greater trochanteric pain syndrome of left lower extremity- Primary Pain of left hip documented in this encounter [facility] Discharge instructions* Attachments The following attachments cannot be sent through Care Everywhere. * Hand Laceration: Stitches (Swedish) [facility]: Summary Purpose Family History No Family History Records FoundNo Family History Records FoundNo Family History Records FoundNo Family History Records FoundNo Family History Records FoundNo Family History Records Found Advance Directives No Advanced Directives Records FoundNo Advanced Directives Records FoundNo Advanced Directives Records FoundNo Advanced Directives Records FoundNo Advanced Directives Records FoundNo Advanced Directives Records Found Reason for Referral Specialty Diagnoses / Procedures Referred By Jolanta hussein Referred To Contact Orthopedics Diagnoses Pain of left hip Procedures CONSULT TO ORTHOPAEDICS OFFICE/OUTPATIENT [facility] 60-74 MINUTES Jae Dumont PA-C [id number] [id number] Referral ID Status Reason Start Date Expiration Date Visits Requested Visits Authorized [id number] Pending Review PCP Requested Referral 3 03/28/2024 1 1 Specialty Diagnoses / Procedures Referred By Jolanta hussein Referred To Contact [facility] Diagnoses Pain of left hip Procedures MRI HIP WO IVCON LEFT MRI ANY JT LOWER EXTREM W/O CONTRAST MATRL Ilene Vences MD [address] [place] [address] [facility] [place] [address] Referral ID Status Reason Start Date Expiration Date Visits Requested Visits Authorized [id number] Pending Review Auto-Generat ed Referral 3 05/16/2024 1 1 Specialty Diagnoses / Procedures Referred By Jolanta hussein Referred To Contact [facility] Diagnoses Greater trochanteric pain syndrome of left lower extremity Procedures CONSULT TO PHYSICAL THERAPY PHYSICAL THERAPY EVALUATION [facility] 45 MINS Ilene Vences MD [address] [place] [address] [facility] [place] [address] [place] [address] Referral ID Status Reason Start Date Expiration Date Visits Requested Visits Authorized [id number] Pending Review Auto-Generat ed Referral 3 04/16/2024 1 1 Additional Source Comments (unrecognized sect ion and content) No Status Records FoundNo Status Records FoundNo Status Records FoundNo Status Records FoundNo Status Records FoundNo Status Records Found INFORMATION SOURCE (unrecogn ized section and content) DATE CREATED AUTHOR AUTHOR'S ORGANIZ ATION 02/01/2021 [facility] DATE CREATED AUTHOR AUTHOR'S ORGANIZ ATION 06/21/2021 [facility] DATE CREATED AUTHOR AUTHOR'S ORGANIZ ATION 05/16/2023 [facility] DATE CREATED AUTHOR AUTHOR'S ORGANIZ ATION 05/20/2023 [facility] DATE CREATED AUTHOR AUTHOR'S ORGANIZ ATION 06/19/2023 [facility] Reason for Visit (unrecogniz ed section and content) Reason Comments Low Back Pain Patient presents tod ay for low back and left hip pain. Specialty Diagnoses / Procedures Referred By Contac t Referred To Contact Diagnoses hip pain Procedures hip pain [place] [address] Referral ID Status Reason Start Date Expiration Date Visits Requested Visits Authorized [id number] Authorized Patient Cleared - Qualified 100% FAS 03/06/2023 06/04/2023 99 99 Reason Comments New Pain Specialty Diagnoses / Procedures Referred By Contac t Referred To Contact Orthopedics Diagnoses Pain of left hip Procedures CONSULT TO ORTHOPAEDICS OFFICE/OUTPATIENT NEW HIGH MDM 60-74 MINUTES Jae Dumont PA-C [address] [place] [address] Referral ID Status Reason Start Date Expiration Date V isits Requested Visits Authorized [id number] Closed PCP Requested Referral 03/29/2023 03/28/2024 1 1 Scheduled Active and Recently Administ ered Medications (unrecognized section and content) No Frequency Medication Order 01/22/2021 01/23/2021 01/24/2021 lidocaine-EPINEPHrine 1 %-[id number] injection (COMPLETED) Starting on 01/24/21 at 2230, For 1 АНДРЕЙ pearson SUZANNE: cabinet override 2231 (Given - Provid er: Luis Bautista RN) Source Comments (unrecognize d section and content) In the event this informatio n is protected by the Federal Confidentiality of Alcohol and Drug Abuse Patient Records regulations: The Federal rules restrict any use of the information to criminally investigate or prosecute any alcohol or drug abuse patient.[facility] event this information is protected by the Federal Confidentiality of Alcohol and Drug Abuse Patient Records regulations: The Federal rules restrict any use of the information to criminally investigate or prosecute any alcohol or drug abuse patient.[facility] FOR RECORDS PERTAINING TO PATIENTS WHO ARE OR HAVE BEEN ENROLLED IN A CHEMICAL DEPENDENCY/SUBSTANCEABUSE PROGRAM, SOME INFORMATION MAY BE OMITTED. This clinical summary was aggregated from multiple sources. Caution should be exercised in using it in the provision of clinical care. This summary normalizes information from multiple sources, and as a consequence, information in this document may materially change the coding, format and clinical context of patient data. In addition, data may be omitted in some cases. CLINICAL DECISIONS SHOULD BE BASED ON THE PRIMARY CLINICAL RECORDS. [facility]. provides no warranty or guarantee of the accuracy or completeness of information in this document.
--- NOTE | 2023-07-05 14:57 | EX.ED.VIS.UR ---
HPI HPI - URI History of Present Illness Chief Complaint: Cold Sx Narrative Narrative: 27-year-old male with fever, chills, body aches, cough, rhinorrhea since yesterday. Patient had nausea and vomiting last night states his vomiting is better today. He has not been up-to-date Tylenol and ibuprofen. Patient denies any chest pain or shortness of breath. ROS ROS ED Constitutional Constitutional ED: Reports chills and fever(s); Denies sweats Eyes Eyes: Denies blurry vision or change in vision ENT ENT ED: Reports rhinorrhea and sore throat; Denies ear pain Cardiovascular Cardiovascular: Denies chest pain, palpitations or racing heartbeat Respiratory/Chest Respiratory/Chest: Denies cough, dyspnea or sputum Gastrointestinal Gastrointestinal: Reports nausea and vomiting; Denies abdominal pain, constipation or diarrhea Genitourinary Genitourinary ED: Denies dysuria, hematuria or urinary frequency Musculoskeletal Musculoskeletal: Denies arthralgias, myalgias or neck pain Integumentary Denies abscess, Abrasions or rash Neurologic Neurologic: Reports headache(s); Denies paresthesias or weakness Psychiatric Psychiatric: Denies anxiety, depression, suicidal ideation or suicidal thoughts Endocrine Endocrinology: Denies polydipsia or polyuria [facility] Medical History Knee injury Home Medications naproxen 500 mg tablet 500 mg PO BID PRN #20 tabs 07/13/19 [Rx Last Taken Unknown] penicillin V potassium 500 mg tablet 500 mg PO 4X/DAY #40 tabs 07/13/19 [Rx Last Taken Unknown] ondansetron 4 mg disintegrating tablet 4 mg PO Q8H PRN PRN Nausea #14 tabs 07/05/23 [Rx Last Taken Unknown] Allergy/AdvReac Type Severity Reaction Status Date / Time No Known Allergies Allergy Verified 07/05/23 11:37 Social History Smoking Status: Unknown if ever smoked EXAM Physical Exam Const Vital Signs: 07/05/23 11:36 Temperature 97.2 F L Temperature Source Temporal Pulse Rate 87 Respiratory Rate 14 Blood Pressure 114/60 Blood Pressure Mean 78 Pulse Ox 100 Oxygen Delivery Method Room Air Positive well nourished General Appearance ED: NAD; Negative for pallor HEENT Reports moist mucous membranes normocephalic and atraumatic Eyes PERRL and EOMs intact bilaterally Neck no lymphadenopathy and supple Resp normal respiratory effort and clear to auscultation bilaterally Cardio Rate: regular rate Rhythm: regular rhythm GI non-tender Extremity normal to inspection Neuro oriented x3 and CN's II-XII intact bilaterally Sensorium / Orientation: alert and oriented to person Psych mental status grossly normal Skin General Skin Exam: Negative for jaundice or pallor MDM MDM MDM Narrative Medical decision making narrative: Patient presenting with viral syndrome. He tested positive for COVID-19 today. His vital signs are stable he is afebrile. He states his nausea is better. He would like a prescription for Zofran sent home. He was given a work note. Patient counseled on alternating Tylenol and ibuprofen for fevers, chills, body aches. He is to drink plenty of fluids. Return precautions are discussed. Impression: 1. COVID-19 Lab Data Attestation: I reviewed the patient's lab results. Discharge Plan Triage Chief Complaint: Cold Sx ED Provider: Rd Richter Dx/Rx/DC Orders Clinical Impression: COVID-19 Prescriptions: New ondansetron 4 mg tablet,disintegrating 4 mg PO Q8H PRN PRN (Reason: Nausea) Qty: 14 0RF No Action penicillin V potassium 500 MG tablet 500 mg PO 4X/DAY Qty: 40 0RF naproxen 500 MG tablet 500 mg PO BID PRN Qty: 20 0RF Stand Alone Forms: ED Work / School Excuse Primary Care Provider: Care Physician,No Primary Referrals: [facility] [Outside] - 3-5 Days Care Physician,No Primary [Primary Care Provider] - Disposition Disposition: Home, Self Care Discharge Date/Time: 07/05/23 13:46
== END 2023-07-05 13:46 | disposition home or self-care (01) ==
PROVIDERS: Emergency Provider Student in an Organized Health Care Education/Training Program; Visit Provider Student in an Organized Health Care Education/Training Program
DX: U07.1 COVID-19 (principal)
CPT/HCPCS: 87631; 99282